=== PATIENT | male | born 1990 | race Caucasian/White ===

== ENCOUNTER 2019-01-02 17:05 | Emergency (ER) | payer OTHER ==
[~2019-01-02] VITALS: Ht 175.3 cm; Wt 83.9 kg
[2019-01-02 17:11] VITALS: Ht 175.3 cm; Wt 83.9 kg
[2019-01-02 17:50] VITALS: BP 125/70
== END 2019-01-02 17:50 | disposition home or self-care (01) ==
LOC: ED 17:05
DX: Z02.89 Encounter for other administrative examinations (principal)